=== PATIENT | male | born 1965 | race Caucasian/White ===

== ENCOUNTER 2022-04-12 18:10 | Emergency (ER) | payer SELFPAY ==
[~2022-04-12] VITALS: Ht 162.6 cm; Wt 82.0 kg
[2022-04-12 18:15] VITALS: BP 182/122
== END 2022-04-12 21:24 | disposition home or self-care (01) ==
LOC: ER 18:10
DX: T65.893A Toxic effect of other specified substances, assault, initial encounter (principal); H10.213 Acute toxic conjunctivitis, bilateral; Y92.89 Other specified places as the place of occurrence of the external cause
CPT/HCPCS: 99282